=== PATIENT | female | born 1955 | race Caucasian/White ===

== ENCOUNTER 2021-01-25 19:31 | Emergency (ER) | payer OTHER ==
[2021-01-25 21:09] LABS: Absolute Lymphocytes (CBC) 1.3 K/uL (0.7-4.9); Basophils % 0.3 % (0-1.3); Hematocrit 44.7 % (36.0-45.0); Lymphocytes % 7.1 % (15.3-44.8); RBC Red Blood Cell Count 5.28 M/uL (3.86-4.86)
[2021-01-25] MEDS ORDERED: NA CHLORIDE 0.9% 500 ML ONE (21:11)
[2021-01-25] MEDS ORDERED: MEPERIDINE HCL 25 MG/ML SYR ONE (21:11)
[2021-01-25] MEDS ORDERED: ONDANSETRON 4 MG/2 ML VIAL ONE (21:11)
[2021-01-25 21:28] LABS: Albumin 3.7 g/dL (3.4-5.0); Bilirubin Direct 0.3 mg/dL (0-0.2); Bilirubin Total 0.9 mg/dL (0.2-1.0); Potassium 3.5 mmol/L (3.5-5.1); Protein, Total 7.7 g/dL (6.4-8.2)
[2021-01-25 21:42] LABS: Blood Morphology Comment NOT SEEN (NOT SEEN); Platelet Estimate ADEQ; White Blood Cell Scan OK (OK)
--- NOTE | 2021-01-25 22:52 | EDPHYS ---
Physician Documentation [facility] Name: Azul Clark Age: 65 yrs Sex: Female : 1955 Arrival Date: 01/25/2021 Time: 19:36 Bed 6 Private MD: ED Physician Koko Lovett HPI: 01/25 20:59 This 65 yrs old Female presents to ER via Unassigned with complaints of rn Abdominal Cramping. 20:59 The patient presents with abdominal pain in the left upper quadrant, in the left lower rn quadrant. Onset: The symptoms/episode began/occurred yesterday. The symptoms do not radiate. Associated signs and symptoms: Pertinent positives: diarrhea, fever, Pertinent negatives: blood in stools, hematuria. The symptoms are described as crampy. Modifying factors: The symptoms are alleviated by nothing, the symptoms are aggravated by touching the area. Severity of pain: At its worst the pain was moderate in the emergency department the pain has improved. The patient has not experienced similar symptoms in the past. The patient has been recently seen by a physician:. Saw Dr. Aragon on tele-visit, told had diverticulitis, given abx, now on day 2, still having crampy pain, + fever and diarrhea, no blood in stool. Reports also diagnosed in past with IBS.. Historical: - Allergies: 22:52 No Known Allergies; wh - PMHx: 22:52 Diabetes - NIDDM; Hypertension; wh - Immunization history:: Adult Immunizations unknown. - Social history:: Smoking status: Patient denies any tobacco usage or history of. - Family history:: not pertinent. - Hospitalizations: : No recent hospitalization is reported. ROS: 20:59 Constitutional: Negative for fever, chills, and weight loss, Eyes: Negative for injury, rn pain, redness, and discharge, Cardiovascular: Negative for chest pain, palpitations, and edema, Respiratory: Negative for shortness of breath, cough, wheezing, and pleuritic chest pain, Abdomen/GI: + left sided abd pain and diarrhea Back: Negative for injury and pain, MS/Extremity: Negative for injury and deformity, Skin: Negative for injury, rash, and discoloration, Neuro: Negative for headache, weakness, numbness, tingling, and seizure. Exam: 20:59 Constitutional: This is a well developed, well nourished patient who is awake, alert, rn and in no acute distress. Ambulatory to room without assistance. Head/Face: Normocephalic, atraumatic. Eyes: Periorbital areas with no swelling, redness, or edema. Cardiovascular: Regular rate and rhythm. No pulse deficits. Respiratory: No increased work of breathing, no retractions or nasal flaring. Abdomen/GI: soft, + left sided abd tenderness, no rebound Skin: Warm, dry MS/ Extremity: Pulses equal, no cyanosis. Neuro: Awake and alert, GCS 15 Vital Signs: 20:55 BP 126 / 70; Pulse 94; Resp 18; Pulse Ox 98% on R/A; mw2 21:00 BP 126 / 72; Pulse 95; Resp 17; Pulse Ox 96% on R/A; mw2 21:15 BP 112 / 66; Pulse 95; Resp 17; Pulse Ox 95% on R/A; mw2 21:30 BP 96 / 68; Pulse 93; Resp 18; Pulse Ox 96% on R/A; mw2 21:45 BP 112 / 68; Pulse 93; Resp 19; Pulse Ox 95% on R/A; mw2 22:30 BP 110 / 65; Pulse 91; Resp 18; Pulse Ox 99% on R/A; MDM: 20:24 Patient medically screened. rn 22:49 Differential diagnosis: bowel obstruction, diverticulitis, non-specific abd pain, rn Ureterolithiasis, urinary tract infection. Data reviewed: vital signs, nurses notes, lab test result(s), radiologic studies, CT scan, and as a result, I will discharge patient. Counseling: I had a detailed discussion with the patient and/or guardian regarding: the historical points, exam findings, and any diagnostic results supporting the discharge/admit diagnosis, lab results, radiology results, the need for outpatient follow up, to return to the emergency department if symptoms worsen or persist or if there are any questions or concerns that arise at home. Response to treatment: the patient's symptoms have markedly improved after treatment, and as a result, I will discharge patient. Special discussion: Based on the patient's Hx, exam, and Dx evaluation, there is no indication for emergent surgery or inpatient Tx. It is understood by the patient/guardian that if the Sx's persist or worsen they need to return immediately for re-evaluation. I discussed with the patient/guardian in detail that at this point there is no indication for admission to the hospital. It is understood, however, that if the symptoms persist or worsen the patient needs to return immediately for re-evaluation. Based on the history and exam findings, there is no indication for further emergent testing or inpatient evaluation. I discussed with the patient/guardian the need to see the aluminum pool installer for further evaluation of the symptoms. I discussed with the patient/guardian the need to see the primary care provider for further evaluation of the symptoms. ED course: Uncomplicated diverticulitis, will dc home with prn zofran and pain meds, already on abx, will continue. . 01/25 20:42 Order name: Basic Metabolic Panel; Complete Time: 21:31 rn 01/25 20:42 Order name: CBC with Diff rn 01/25 20:42 Order name: Hepatic Function; Complete Time: 21:31 rn 01/25 20:42 Order name: Lipase; Complete Time: 21:31 rn 01/25 20:42 Order name: CT Abd/Pelvis - IV Contrast Only 01/25 21:42 Order name: CBC Smear Scan EDGA 01/25 20:42 Order name: IV Saline Lock; Complete Time: 20:59 rn 01/25 20:42 Order name: Labs collected and sent; Complete Time: 20:59 rn Administered Medications: 20:54 Drug: NS 0.9% 500 ml Route: IV; Rate: bolus; Site: right antecubital; mg2 22:56 Follow up: Response: No adverse reaction; IV Status: Completed infusion 20:56 Drug: Demerol (meperidine) 25 mg {Note: RASS 0.} Route: IVP; Site: right antecubital; mg2 22:56 Follow up: Response: No adverse reaction; Pain is decreased; RASS: Alert and Calm (0) 20:58 Drug: Zofran (Ondansetron) 4 mg Route: IVP; Site: right antecubital; mg2 22:56 Follow up: Response: No adverse reaction Disposition: 01/25/21 22:51 Discharged to Home. Impression: Diverticulitis of large intestine without perforation or abscess without bleeding. - Condition is Stable. - Discharge Instructions: Diverticulitis. - Prescriptions for Zofran ODT 4 mg Oral tablet,disintegrating - place 1 tablet by TRANSLINGUAL route every 8 hours As needed; 20 tablet. Tylenol- Codeine #3 300-30 mg Oral Tablet - take 1 tablet by ORAL route every 4-6 hours As needed; 20 tablet. - Medication Reconciliation Form, Thank You Letter, Antibiotic Education, Prescription Opioid Use form. - Follow up: Private Physician; When: As needed; Reason: Recheck today's complaints, Re-evaluation by your physician. - Problem is new. - Symptoms have improved. Signatures: Dispatcher [employer] EDGA Koko Lovett MD MD rn Habalo, Winsy, RN RN Donny Stone RN RN mg2 Corrections: (The following items were deleted from the chart) 23:10 22:51 01/25/2021 22:51 Discharged to Home. Impression: Diverticulitis of large mg2 intestine without perforation or abscess without bleeding. Condition is Stable. Forms are Medication Reconciliation Form, Thank You Letter, Antibiotic Education, Prescription Opioid Use. Follow up: Private Physician; When: As needed; Reason: Recheck today's complaints, Re-evaluation by your physician. Problem is new. Symptoms have improved. rn
--- NOTE | 2021-01-25 22:52 | ER ---
Nurse's Notes [facility] Name: Azul Clark Age: 65 yrs Sex: Female : 1955 Arrival Date: 01/25/2021 Time: 19:36 Bed 6 Private MD: Diagnosis: Diverticulitis of large intestine without perforation or abscess without bleeding Presentation: 01/25 20:30 Chief complaint: Patient states: was diagnosed with Diverticulitis and started on antibiotics. Pt C/O worsening abdominal pain. Coronavirus screen: Client denies travel out of the [place] in the last 14 days. Client indicates they have traveled out of the [place] in the last 14 days. Ebola Screen: Patient negative for fever greater than or equal to 101.5 degrees Fahrenheit, and additional compatible Ebola Virus Disease symptoms Patient denies exposure to infectious person. Initial Sepsis Screen: Does the patient meet any 2 criteria? HR > 90 bpm. Does the patient have a suspected source of infection? Yes: Acute abdominal pain. Risk Assessment: Do you want to hurt yourself or someone else? Patient reports no desire to harm self or others. Onset of symptoms was January 25, 2021. 20:30 Method Of Arrival: Ambulatory 20:30 Acuity: VICKIE 3 Historical: - Allergies: 22:52 No Known Allergies; - PMHx: 22:52 Diabetes - NIDDM; Hypertension; - Immunization history:: Adult Immunizations unknown. - Social history:: Smoking status: Patient denies any tobacco usage or history of. - Family history:: not pertinent. - Hospitalizations: : No recent hospitalization is reported. Screenin:30 Abuse screen: Denies threats or abuse. Denies injuries from another. Nutritional screening: No deficits noted. Tuberculosis screening: No symptoms or risk factors identified. Fall Risk None identified. Assessment: 21:00 General: Appears in no apparent distress. uncomfortable, Behavior is calm, cooperative, wh appropriate for age. Pain: Complains of pain in abdomen Quality of pain is described as crampy, Pain began 1 day ago. Neuro: Level of Consciousness is awake, alert, obeys commands, Oriented to person, place, time, situation, Appropriate for age. Cardiovascular: Heart tones S1 S2. Respiratory: Airway is patent Respiratory effort is even, unlabored, Respiratory pattern is regular, symmetrical, Breath sounds are clear bilaterally. GI: Abdomen is flat, non-distended, Bowel sounds present X 4 quads. Abd is soft and non tender Reports lower abdominal pain. : No signs and/or symptoms were reported regarding the genitourinary system. EENT: No signs and/or symptoms were reported regarding the EENT system. Derm: Skin is intact, is healthy with good turgor, Skin is pink, warm \T\ dry. normal. Musculoskeletal: Circulation, motion, and sensation intact. 22:30 Reassessment: Patient appears in no apparent distress at this time. No changes from previously documented assessment. Patient and/or family updated on plan of care and expected duration. Pain level reassessed. Patient is alert, oriented x 3, equal unlabored respirations, skin warm/dry/pink. Patient states feeling better. Patient states symptoms have improved. Vital Signs: 20:55 BP 126 / 70; Pulse 94; Resp 18; Pulse Ox 98% on R/A; mw2 21:00 BP 126 / 72; Pulse 95; Resp 17; Pulse Ox 96% on R/A; mw2 21:15 BP 112 / 66; Pulse 95; Resp 17; Pulse Ox 95% on R/A; mw2 21:30 BP 96 / 68; Pulse 93; Resp 18; Pulse Ox 96% on R/A; mw2 21:45 BP 112 / 68; Pulse 93; Resp 19; Pulse Ox 95% on R/A; mw2 22:30 BP 110 / 65; Pulse 91; Resp 18; Pulse Ox 99% on R/A; ED Course: 01/24 20:30 Arm band placed on right wrist. 01/25 19:36 Patient arrived in ED. cl3 20:23 Koko Lovett MD is Attending Physician. rn 20:30 Patient has correct armband on for positive identification. Bed in low position. Call light in reach. Side rails up X 1. Pulse ox on. NIBP on. 20:45 Inserted saline lock: 20 gauge in right antecubital area, using aseptic technique. Blood collected. 22:09 CT Abd/Pelvis - IV Contrast Only In Process Unspecified. EDMS 22:49 Bri Cabral, F[place]ON is Primary Nurse. 22:50 Triage completed. 23:03 No provider procedures requiring assistance completed. IV discontinued, intact, mg2 bleeding controlled, No redness/swelling at site. Pressure dressing applied. Administered Medications: 20:54 Drug: NS 0.9% 500 ml Route: IV; Rate: bolus; Site: right antecubital; mg2 22:56 Follow up: Response: No adverse reaction; IV Status: Completed infusion 20:56 Drug: Demerol (meperidine) 25 mg {Note: RASS 0.} Route: IVP; Site: right antecubital; mg2 22:56 Follow up: Response: No adverse reaction; Pain is decreased; RASS: Alert and Calm (0) 20:58 Drug: Zofran (Ondansetron) 4 mg Route: IVP; Site: right antecubital; mg2 22:56 Follow up: Response: No adverse reaction Outcome: 22:51 Discharge ordered by MD. rn 23:03 Discharged to home ambulatory, with family. mg2 23:03 Condition: good 23:03 Discharge instructions given to patient, family, Instructed on discharge instructions, follow up and referral plans. medication usage, Demonstrated understanding of instructions, follow-up care, medications, Prescriptions given X 2. 23:10 Patient left the ED. mg2 Signatures: Dispatcher [employer] EDMS Koko Lovett MD MD rn Habalo, Winsy, RN RN Jf Cameron mw2 Donny Stone RN RN [facility] cl3 Corrections: (The following items were deleted from the chart) 22:55 20:30 Initial Sepsis Screen: Does the patient meet any 2 criteria? No. Patient's initial sepsis screen is negative. Does the patient have a suspected source of infection? Yes: Acute abdominal pain
[2021-01-25 23:23] VITALS: BP 110/65; O2SAT 99
--- NOTE | 2021-01-26 13:57 | RAD REPORT ---
EXAM DESCRIPTION: CT ABDOMEN AND PELVIS WITH CONTRAST CLINICAL HISTORY: Left sided abd pain COMPARISON: None Available. TECHNIQUE: CT of the abdomen and pelvis performed following IV administration of iodinated contras t. This exam was performed according to our departmental dose-optimization program, which includes au tomated exposure control, adjustment of the mA and/or kV according to patient size and/or use of iter ative reconstruction technique. FINDINGS: Lung Bases: Minimal bilateral dependent atelectasis. Bones: Multilevel endplate spondylosis and facet arthropathy of the spine. Abdomen: Liver: The liver has normal size and density. No intrahepatic biliary dilatation. 0.3 cm right hepati c cyst. Gallbladder: Punctate calcification at the inferior aspect of the gallbladder may represent cholelith iasis or gallbladder wall calcification. Spleen, Pancreas, and Adrenal Glands: 1.2 cm indeterminate left adrenal nodule. Right adrenal gland , spleen, and pancreas are unremarkable. Kidneys: No hydronephrosis or obstructing calculus. Vasculature: Aortoiliac atherosclerosis. IVC is unremarkable. The portal vein is patent. The proxim al visceral and renal arteries are patent. Stomach: Moderate hiatal hernia. Other: No free intraperitoneal air. Small amount of free pelvic fluid. Pelvis: Bladder: Urinary bladder is unremarkable. Bowel: No dilated loops of large or small bowel. Scattered diverticula colon. Short segment bowel w all thickening and pericolic inflammatory change of the proximal sigmoid colon. No well-circumscribed pericolic fluid collection. Mild wall thickening of the adjacent small bowel likely represents react mirza enteritis. Appendix: Not identified. Pelvis: Coarse calcifications involving the uterine myometrium may represent burned out fibroids. The uterus is not enlarged. IMPRESSION: 1. Findings compatible with acute uncomplicated sigmoid diverticulitis. Continued foll ow-up after acute illness to exclude other causes of short segment bowel wall thickening recommended. 2. 1.2 cm indeterminate left adrenal nodule. Follow-up with adrenal washout CT recommended in 12 mo nths. 3. Moderate hiatal hernia. 4. Punctate calcification at the inferior aspect of the gallbladder may represent cholelithiasis or gallbladder wall calcification. Electronically signed by: Naveen Spencer 01/25/2021 10:35 PM CDT Due to temporary technical issues with the PACS/Fluency reporting system, reports are being signed by the in house radiologists without review as a courtesy to insure prompt reporting. The interpreting radiologist is fully responsible for the content of the report.
== END 2021-01-25 23:10 | disposition home or self-care (01) ==
LOC: ER 19:31
DX: K57.32 Diverticulitis of large intestine without perforation or abscess without bleeding (principal); I10 Essential (primary) hypertension; E11.9 Type 2 diabetes mellitus without complications
CPT/HCPCS: 85025; 80048; 36415; 80076; 83690; 74177; Q9967; J2175; J7040; J2405; 96361; 96374; 96375; 99284

== ENCOUNTER 2022-04-02 06:30 | Day surgery (SDC) | payer OTHER ==
--- NOTE | 2022-03-29 15:19 | RAD REPORT ---
EXAM DESCRIPTION: RAD - Chest Pa And Lat (2 Views) - 03/29/2022 3:02 pm CLINICAL HISTORY: pre-circus laborer procedure COMPARISON: No comparisons FINDINGS: Lines: None. Lungs: No evidence of edema or pneumonia. Pleural: No significant pleural effusions or pneumothorax. Cardiac: The heart size is within normal limits. Bones: No acute fractures. Other: IMPRESSION: No acute cardiopulmonary disease.
[2022-03-29 16:14] LABS: Hematocrit 41.2 % (36.0-45.0); Lymphocytes % 22.5 % (15.3-44.8); MPV 8.4 fL (7.6-11.3); Protime INR 0.98; RBC Red Blood Cell Count 4.53 M/uL (3.86-4.86)
[2022-03-29 16:31] LABS: Potassium 3.5 mmol/L (3.5-5.1)
--- NOTE | 2022-03-31 08:58 | EKG ---
Test Date: 2022-03-29 Test Time: 15:12:27 Plumbing And Heating Contractor: ANNA MEASUREMENT RESULTS: Intervals: Rate: 73 MN: 146 QRSD: 80 QT: 394 QTc: 434 Epworth: P: 36 MN: 146 QRS: -14 T: 15 INTERPRETIVE STATEMENTS: Normal sinus rhythm Possible Left atrial enlargement Low voltage QRS Inferior infarct, age undetermined Cannot rule out Anterior infarct, age undetermined Abnormal ECG No previous ECG available for comparison Electronically Signed On 03-31-22 08:55:32 CDT by Antonio lBack
[2022-04-02] MEDS ORDERED: LIDOCAINE 1% 20 ML MDV ONE (06:36)
[2022-04-02] MEDS ORDERED: HEPA 1000U/500MLS 1,000 UNIT/500 ML BAG IV ONE (06:36)
[2022-04-02] MEDS ORDERED: MIDAZOLAM HCL 2 MG/2 ML INJ ONE (07:00)
[2022-04-02] MEDS ORDERED: ATROPINE SULF 1 MG/10 ML SYR IV ONE (07:00)
[2022-04-02] MEDS ORDERED: FENTANYL CITR 100 MCG/2 ML ONE (07:00)
[2022-04-02] MEDS ORDERED: NA CHLORIDE 0.9% 500 ML ONE (07:05)
[2022-04-02 07:18] VITALS: TEMP 97
[2022-04-02 09:53] VITALS: BP 148/69; O2SAT 97
--- NOTE | 2022-04-02 13:04 | OP ---
Surgeon: Antonio Black MD Eyelet Row Marker: Myrna Liveshweta Corral. Admitted to my service on 04/02/2022 as an outpatient for selective bilateral carotid angiogram and a common femoral artery angiogram. Indication: Severe cerebrovascular disease by Doppler recently in the office. Ms. Clark is 66. Has a history of diabetes, hypertension, dyslipidemia, abnormal carotid Doppler on the left side. Procedure In Detail: Brought to the laborer vineyard today as an outpatient, prepped and draped in the routi ne sterile fashion. Given Versed and fentanyl for sedation. A 6-Frisian sheath introduced in the rig common femoral artery successfully using 10 cc of Xylocaine and Seldinger technique. Angiography there was normal. Angio-Seal was used to close the case. A JR4 catheter was used to cannulate the r ight common carotid artery first and then the left common carotid artery separately. Angiography on both carotids revealed normal common carotid artery bilaterally. The external carotid artery has inna e plaquing throughout. The right internal carotid artery was normal. The left internal carotid had a 90% stenosis in the proximal segment of it. There were no complications. Blood loss was 5 mL. Postoperative Diagnosis: Severe left ICA stenosis. Plan: For left carotid endarterectomy. The patient will remain in the hospital for 2 hours of bedre . I will have her follow up with CV Surgery in [place]. She will have a CD with her. GLYNN/JAZZ Voice ID: [id number] Report ID: [id number]
== END 2022-04-02 10:05 | disposition home or self-care (01) ==
LOC: CCL 06:30
DX: I65.22 Occlusion and stenosis of left carotid artery (principal); I10 Essential (primary) hypertension; E78.2 Mixed hyperlipidemia; E11.9 Type 2 diabetes mellitus without complications; R09.89 Other specified symptoms and signs involving the circulatory and respiratory systems; F17.210 Nicotine dependence, cigarettes, uncomplicated; Z79.84 Long term (current) use of oral hypoglycemic drugs; Z79.899 Other long term (current) drug therapy; Z20.822 Contact with and (suspected) exposure to COVID-19; Z82.49 Family history of ischemic heart disease and other diseases of the circulatory system
CPT/HCPCS: 93005; 85025; 80048; 36415; 85610; 85730; 71046; 36222; U0003; C1893; C1760; G0269; J2250; J3010; J7040; J1644

== ENCOUNTER 2022-12-22 11:30 | Emergency (ER) | payer OTHER ==
--- OUTSIDE RECORDS SUMMARY | 2022-12-22 11:34 | XMS REPORT | Continuity of Care Document ---
:1955 Author Organization [facility] t Address [address] [place] [address] Care Team Providers Name Role Phone Adair ZUNIGA, Bart Myers Attending Clinician [phone] BART BORRERO Attending Clinician Unavailable Oli LEHMAN, Susana Attending Clinician Yash ZUNIGA, Brandin Oconnor Attending Clinician Edwige ZUNIGA, Devyn Sheets Attending Clinician BART BORRERO Admitting Clinician Unavailable Payers Payer Name Policy Type Policy Number Effective Date Expiration Date S ource Problems Condition Condition Condition Status Onset Resolution Last Treating Co mments Source Name Details Category Date Date Treatment Clinician Date Carotid Carotid Disease Active [facility] stenosis[facility] stenosis, 04-10 [facility] left left 00:00: Medical 00 Center Carotid Carotid Disease Active [facility] stenosis, stenosis, 04-10 [facility] asymptomat asymptomat 00:00: Me dical ic ic 00 Center Left Left Disease Active [facility] carotid carotid 04-04 [facility] artery artery 00:00: Medical stenosis stenosis 00 Center Type 2 Type [address] [facility] diabetes diabetes 04-04 [facility] mellitus mellitus 00:00: Medica l 00 [place] Essential Essential Disease Active [facility] hypertensi hypertensi 04-04 [facility] kes on on 00:00: Medical 00 [place] Hyperlipid Hyperlipid Disease Active [facility] emia emia 04-04 [facility] 00:[facility]: Medical 00 Center S/P Left S/P Left Disease Active [facility] carotid carotid [facility] endarterec endarterec Me dical car by car by Center Dr. Dr. Borrero on [facility] on 04/10/22 04/10/22 Acute Acute Disease Active [facility] postoperat postoperat [facility] kes mirza anemia mirza anemia Me dical due to due to Center expected expected blood loss blood loss Acute Acute Disease Active [facility] postoperat postoperat [facility] kes mirza pain mirza pain Medica l Center Hypovolemi Hypovolemi Disease Active [facility] c shock c shock [facility] Allergies, Adverse Reactions, Alerts Allergy Allergy Status Severity Reaction(s) Onset Inactive Treating Comm ents Source Name Type Date Date Clinician AMOXICIL Allergy Active Med N\\T\\V [facility] KAT[facility] -22 [facility] 00:[facility]: Medical 00 Center AMOXICIL Allergy Active Med N\\T\\V [facility] KATI-POT 04-04 [facility] CLAVULAN 00:00: Medical ATE 00 Center Amoxicil Propensi Active Nausea And [facility] kati ty to Vomiting 04-04 [facility] adverse 00:00: Medical reaction 00 [place] Amoxicil Propensi Active Nausea And [facility] kati-Pot ty to Vomiting 04-04 [facility] Clavulan adverse 00:00: Medical ate reaction 00 [place] Family History Family Member Diagnosis Comments Start Date Stop Date Source Natural brother Hypertension [facility] Natural father Hypertension [facility] Social History Social Habit Start Date Stop Date Quantity Comments Source Alcohol intake 2022-04-11 2022-04-[facility] Tobacco Comment 2022-04-09 2022-04-09 5 - [address] [facility] Farzana kes 00:00:00 00:00:00 cigarettes/day Medical Ce nter Cigarettes smoked 2022-04-04 2022-04-[address] Farzanakes current (pack per 00:00:00 00:00:00 [facility] day) - Reported Cigarette 2022-04-04 2022-04-[address] [facility] pack-years 00:00:00 00:00:[address] [facility] Tobacco use and 2022-04-04 2022-04-04 Never used [facility] St Farzana kes exposure 00:00:00 00:00:[address] [facility] Sex Ass[birth year] At 1955 [address] [facility] [address] Farzana kes 00:00:00 00:00:00 Medical Center Smoking Status Start Date Stop Date Source Current every day smoker 2022-04-04 00:00:00 [facility] Medications Ordered Filled Start Stop Current Ordering Indication Dosage Frequency Signature Comments Components Source Medication Medication Date Date Medication? Clinician (SIG) Name Name aspirin 81 Yes 81mg QD Take [address] MG EC 7-12 by mouth [facility] tablet 09:23: daily. Medical 34 [place] sertraline Yes 50mg QD Take [address] (ZOLOFT) 50 6-19 by mouth Luke s MG tablet 00:00: daily . Medic al 00 [place] clopidogreL Yes 75mg QD Take [address] (PLAVIX) 75 6-16 by mouth Luke s mg tablet 00:00: daily . Medic al 00 [place] metFORMIN Yes 750mg Take [address] (GLUCOPHAGE 6-08 mg by [facility]ukes -XR) 750 MG 00:00: mouth Medic al 24 hr 00 daily with Center tablet dinner WITH MEAL. clonazePAM Yes .5mg Take 0.[address] (KlonoPIN) 6-07 mg by [facility]ukes 0.5 MG 00:00: mouth as Medical tablet 00 needed . [place] atorvastati Yes 20mg QD Take [address] n (LIPITOR) 6-06 by mouth Luke s 20 MG 00:00: daily. Medical tablet 00 Center metoprolol Yes 25mg QD Take [address] succinate 4-06 by mouth [facility] (TOPROL-XL) 00:00: daily. Medi james 25 MG 24 hr 00 Center tablet traZODone Yes 100mg QD Take [address] (DESYREL) 3-28 mg by [facility]ukes 100 MG 00:00: mouth Medical tablet 00 daily . Center Vital Signs Vital Name Observation Time Observation Value Comments Source HEIGHT 2022-04-24 09:07:00 170.2 cm WEIGHT 2022-04-24 09:07:00 78.472 kg HEIGHT 2022-04-24 09:07:00 170.2 cm WEIGHT 2022-04-24 09:07:00 78.472 kg WEIGHT 2022-04-11 04:00:00 80.1 kg HEIGHT 2022-04-10 09:14:00 170.2 cm WEIGHT 2022-04-10 09:14:00 74.6 kg HEIGHT 2022-04-09 10:03:00 170.2 cm WEIGHT 2022-04-09 10:03:00 74.844 kg WEIGHT 2022-04-11 04:00:00 80.1 kg HEIGHT 2022-04-10 09:14:00 170.2 cm WEIGHT 2022-04-10 09:14:00 74.6 kg HEIGHT 2022-04-09 10:03:00 170.2 cm WEIGHT 2022-04-09 10:03:00 74.844 kg WEIGHT 2022-04-11 04:00:00 80.1 kg HEIGHT 2022-04-10 09:14:00 170.2 cm WEIGHT 2022-04-10 09:14:00 74.6 kg HEIGHT 2022-04-09 10:03:00 170.2 cm WEIGHT 2022-04-09 10:03:00 74.844 kg HEIGHT 2022-04-04 09:57:00 170.2 cm WEIGHT 2022-04-04 09:57:00 75.751 kg HEIGHT 2022-04-04 09:57:00 170.2 cm WEIGHT 2022-04-04 09:57:00 75.751 kg HEIGHT 2022-04-04 09:57:00 170.2 cm WEIGHT 2022-04-04 09:57:00 75.751 kg Body temperature 2022-04-24 09:07:00 35.89 Mickie [facility] Respiratory rate 2022-04-24 09:07:00 14 /min [facility] Body height 2022-04-24 09:07:00 170.2 cm [facility] Body weight 2022-04-24 09:07:00 78.472 kg [facility] BMI 2022-04-24 09:07:00 27.10 kg/m2 [facility] Oxygen saturation in 2022-04-24 09:07:00 99 /min [facility] Arterial blood by Medical Ce nter Pulse oximetry Systolic blood 2022-04-24 09:07:00 131 mm[Hg] [facility] Diastolic blood 2022-04-24 09:07:00 63 mm[Hg] [facility] Heart rate 2022-04-24 09:07:00 74 /min [facility] Procedures Procedure Date / Time Performed Performing Clinician Sour e POCT-GLUCOSE METER 2022-04-11 08:05:[address] [facility] COMPREHENSIVE METABOLIC 2022-04-11 02:34:00 Bubba, [facility] MAGNESIUM 2022-04-11 02:34:00 Bubba, [facility] PHOSPHORUS 2022-04-11 02:34[facility] 2022-04-11 02:34:00 Bubba, [facility] BLOOD GAS, ARTERIAL 2022-04-11 02:34:00 Bubba, [facility] CBC W/PLT COUNT & AUTO 2022-04-11 02:34:00 Bubba, [facility] LACTIC ACID, ARTERIAL 2022-04-11 02:34:00 Bubba, [facility] CBC W/PLT COUNT & AUTO 2022-04-11 02:34:00 Bubba, [facility] METABOLIC 2022-04-10 21:10:00 Bubba, [facility] MAGNESIUM 2022-04-10 21:10:00 Bubba, [facility] PHOSPHORUS 2022-04-10 21:10:00 [facility] CALCIUM, IONIZED 2022-04-10 21:10:00 [facility] BLOOD GAS, ARTERIAL 2022-04-10 21:10:00 [facility] PROTHROMBIN TIME/INR 2022-04-10 21:10:00 [facility] APTT 2022-04-10 21:10:00 [facility] FIBRINOGEN 2022-04-10 21:10:00 Bubba [facility] LACTIC ACID, ARTERIAL 2022-04-10 21:10:00 Bubba [facility] CBC W/PLT COUNT & AUTO 2022-04-10 21:10:00 Bubba [facility] CBC W/PLT COUNT & AUTO 2022-04-10 21:10:00 Bubba [facility] DIFFERENTIAL [facility] ECG 12-LEAD 2022-04-10 20:15:27 Bubba [facility] ECG 12-LEAD 2022-04-10 20:15:27 Unknown, Hl7 Doctor [facility] XR CHEST 1 VIEW PORTABLE 2022-04-10 19:56:00 Bubba [facility] SODIUM NA-STAT LAB 2022-04-10 14:07:00 [facility] POTASSIUM-STAT LAB 2022-04-10 14:07:00 [facility] CALCIUM, IONIZED 2022-04-10 14:07:00 [facility] GLUCOSE-STAT LAB 2022-04-10 14:07:00 [facility] HGB/HCT (H&H) - STAT LAB 2022-04-10 14:07:00 [facility] TISSUE EXAM 2022-04-10 12:59:00 [facility] POCT-ACT 2022-04-10 12:58:00 [facility] ABORH, MANUAL 2022-04-10 12:06:00 Gladis Colon [facility] ENDARTERECTOMY, CAROTID 2022-04-10 11:46:00 [facility] POCT-GLUCOSE METER 2022-04-10 09:18:00 [facility] BASIC METABOLIC PANEL 2022-04-04 12:26:00 Sean Epperson CH I [facility] CBC W/PLT COUNT & AUTO 2022-04-04 12:26:[address] [facility] Center PROTHROMBIN TIME/INR 2022-04-04 12:26:00 Sean Epperson [facility] TYPE AND SCREEN, 2022-04-04 12:26:00 Sean Epperson [facility] AUTOMATED [facility] CBC W/PLT COUNT & AUTO 2022-04-04 12:26:00 Sean Epperson HI [facility] ECG 12-LEAD 2022-04-04 11:45:11 Sean Epperson [facility] ECG 12-LEAD 2022-04-04 11:45:11 Unknown, Hl7 Doctor [facility] Plan of Care Planned Activity Planned Date Details Comments Source Future Scheduled 2022-10-[address] [facility] Test 00:00:00 (12+) [code = Medical Center DEPRESSION SCREENING (12+)] Future Scheduled 2022-10-14 FALLS RISK SCREENING [facility] Test 00:00:00 [code = FALLS RISK Medical C enter SCREENING] Future Scheduled 2022-06-14 INFLUENZA VACCINE (#1) [facility] Test 00:00:00 [code = INFLUENZA Medical Ce nter VACCINE (#1)] Future Scheduled 2022-04-[address] [facility] Test 00:00:00 measurement (procedure) [facility] [code = 07264261] Future Scheduled 2020-10-[address] [facility] Test 00:00:00 WELLNESS (YEAR 2 or Medical Center FIRST YEAR if no IPPE) [code = MEDICARE ANNUAL WELLNESS (YEAR 2 or FIRST YEAR if no IPPE)] Future Scheduled 2004 SHINGLES VACCINES ([address] [facility] Test 00:00:00 2) [code = SHINGLES Medical Center VACCINES (1 of 2)] Future Scheduled 1973 DTAP/TDAP/TD VACCINES [facility] Test 00:00:00 (1 - Tdap) [code = Medical C enter DTAP/TDAP/TD VACCINES (1 - Tdap)] Future Scheduled 1972 HEPATITIS C SCREENING [facility] Test 00:00:00 [code = HEPATITIS C Medical Center SCREENING] Future Scheduled [address] [facility] Test 00:00:00 Counseling and Medical Cente r Screening (12+) [code = Tobacco Cessation Counseling and Screening (12+)] Future Scheduled 1964 DIABETIC EYE EXAM [code [facility] Test 00:00:00 = DIABETIC EYE EXAM] [facility] Future Scheduled [address] [facility] Test 00:00:00 examination Medical Center (regime/therapy) [code = 326623489] Future Scheduled 1964 Urine screening for [facility] Test 00:00:00 protein (procedure) [facility] [code = 566278089] Future Scheduled 1960 PNEUMOCOCCAL 65+ YRS ([address] [facility] Test 00:00:00 - PCV) [code = Medical Cente r PNEUMOCOCCAL 65+ YRS (1 - PCV)] Future Scheduled 1955-02-10 COVID-19 VACCINE (#1) [facility] Test 00:00:00 [code = COVID-[address] VACCINE (#1)] Future Scheduled 1954 Screening for malignant [facility] Test 00:00:00 neoplasm of breast Medical C enter (procedure) [code = 748035801] Future Scheduled 1954 CT Colonography (combo) [facility] Test 00:00:00 [code = CT Colonography [facility] (combo)] Future Scheduled 1954 Screening for malignant [facility] Test 00:00:00 neoplasm of colon Medical Ce nter (procedure) [code = 429871556] Future Scheduled 1954 Screening for malignant [facility] Test 00:00:00 neoplasm of colon Medical Ce nter (procedure) [code = 777639494] Future Scheduled 1955 DXA SCAN [code = DXA [facility] Test 00:00:00 SCAN] [facility] Future Scheduled 1954 Screening for malignant [facility] Test 00:00:00 neoplasm of colon Medical Ce nter (procedure) [code = 141201147] Future Scheduled 1954 Screening for malignant [facility] Test 00:00:00 neoplasm of colon Medical Ce nter (procedure) [code = 021902992] Future Scheduled 1955 Sigmoidoscopy [code = CH I [facility] Test 00:00:00 Sigmoidoscopy] Medical Renea bae Encounters Start End Encounter Admission Attending Care Care Encounter Source Date/Time Date/Time Type Type Clinicians Facility Department ID 2022-04-24 2022-04-24 Office Adair [facility] [id number] 10:00:00 10:30:00 Visit [facility] 2022-04-24 2022-04-24 Outpatient MARKUS BORRERO [facility] [id number] [facility] 09:01:21 09:01:21 [facility] 2022-04-16 2022-04-16 Telephone Oli [facility] [id number] 00:00:00 00:00:00 [facility] 2022-04-10 2022-04-11 Inpatient MARKUS BORRERO [facility] Surgery [id number] [facility] 08:58:00 11:04:00 [facility] 2022-04-10 [facility]22[facility]04[facility] [id number] 08:58:00 11:04:00 Encounter [facility] 2022-04-10 2022-04-10 Outpatient [facility] [id number] [facility] 08:58:00 23:59:00 [facility] 2022-04-10 2022-04-10 Anesthesia Brandin Berrios [facility] [id number] 12:02:00 14:08:00 Event Devyn Gibbons [facility] 2022-04-10 2022-04-10 [facility] [id number] 11:15:00 14:07:00 [facility] 2022-04-10 2022-04-10 Outpatient [facility] [id number] [facility] 00:00:00 08:57:00 [facility] 2022-04-09 2022-04-09 Outpatient [facility] [id number] [facility] 10:01:21 23:59:00 2022-04-09 2022-04-09 [facility] [id number] 09:40:00 23:59:[address] [facility] 2022-04-09 2022-04-09 Travel [facility] [id number] [facility] 00:00:00 00:00:00 [facility] 2022-04-04 2022-04-04 Office Adair [facility] [id number] 11:00:00 11:30:00 Visit [facility] 2022-04-04 2022-04-04 Outpatient EL ADAIR [facility] [id number] [facility] 09:52:55 09:52:55 [facility] 2022-04-04 2022-04-04 Orders [facility] [id number] 00:00:00 00:00:00 Only [facility] Results Test Description Test Time Test Comments Results Result Comments Source Tissue Exam 2022-04-21 14:23:23 Test Item Value Reference Range Interpretation Comme nts Case Report (test code = 104) Surgical Pathology Report Case: [id number] Authorizing Provider: Bart Borrero, Collected: 04/10/2022 12:59 PM Ordering Location: [facility] Received: 04/10/2022 02:29 PM PERIOPERATIVE SERVICES Pathologist: Mari Ibarra MD Specimen: Plaque, Left Carotid Artery Plaque DIAGNOSIS (test code = 3220) c0runJGcOUAxt2ziZBWksEMbFwPhOzOxHbGeDa dWMxIHtccnRmMVxlcGljOTYwMlxhbnNpXHNwbHRw V0ZwfzatIWucUB5oBG8ciSrlxEKzuPApQJZsWvGw f7nod688aGUqo6rlWERAaxrehCp7iQusV48uz4A2 EmxvS38naHVjEWD4NIXgCORlzUZdMUGoDAC8KLPt tZMoO7kdLMHbJY7eklvmTCpyLUruUGZtvGM2OYHe aCXuZ3ZfATJiUYzpYRVprzy9EyAkRs5wlDCukAad MFxwYXJkXHBsYWluXGZzMjAgTEVGVCBDQVJPVElE PXRQQMKSWWVGSXSNHOEcBXTNUEFVVLXQMVTVA47J WcxahU0kGUMiBESGXHBEEheATIRSPFvPRh3DPSVX VAVmCMyEKDFFRERbik40TLH7RiSzf2Z1HHW4YFEt NXKvn8arIWLnoPVsWkUjUjEjYrZhYtankHWlKTBr LeKpp8aji776yQGrc5utQJDwFlA3dSRaRKGiyMUd B997TUYfKOzbz3ldl3EyCLWsiHWta3B9LUAZaiyk oIk1hCzkM70ja3H1IzweO7mmHROoPNOnW0YqHK5g MWSwEqh2PBT6VAF5KVTkYMGiP7HbOJ7tZOBmuEYk BCg0p3rpqIhkHQKdIXY3f6noYHqqtzDhXO4chn7s bEd9f5kswzXrSADeBPXmrJXRRCHfJ0LizFjjVu8f tMt9gMyxSxtoQUK0Apn6SE1fdw08flb0jDczNQUo uzvoNfN7UUbfFAYfagjlQFk8AJqxDJYdlOU3DISd qOOiX6TjTTDzRI5etgj2BTA7BAuuTKBaSyW9RJUr rVUoIYDpqJzlTXgof931JLA3KcDcQZ6xO1Jfw9D1 gB3jrQAfKKMybSBxReVzHPQdii1sgHQdDCnnb4Hy VFX6jjZ4oJLjgODbEKZfGeV5EPuvVR5ykr81WERu ICG9zo1cdCRdjVfxdxNkzJPbPEgpP7MeUOWjo009 WFUwB6EdWYYzc4A8cvTgVxThODWeiMZ5plM6TSWj EI1mfycsa6rvQNpdSWfmKYMljmY2ilK8CRVqbNOc F2YgsG9cPSFaPN1jcubfv1wmNGH2RPkxVJKxKZM7 IfTbUOPkd3Vebqv5ZnWiu3DxbQLjAZzzC75ji160 QFJlehKpN5mzpMWijyqttKZvzayeSCylwcT3VVEd XAqxxzzoOROmVYvzQ9tfSdOgINAbuSjhTPxky2Xp OEOhEFXpAnGtiUWtZNAcZin1DWXlwQQnSPWjRnUf C8clfbcbUzBAJFOmw3ioE4pqlIPSiWFdG5ToSJkt ksQaVDxtKIxvRjIwBTr6PN01PfJmTCCdvo14 CPT Code(s) (test code = 0517) e4nebFGdMWEvmUB8UoAwJXBpr3ozr0CyhWTu cGFy ZBsnwJQoswCwki01bVI1mF59CJ0qXZZwCnD0BXGy nzH6Ewc7QXNiPRUkkRTeL187w1hvo3jcodFugRR5 gIypOXSztemnJmS9FDupVQUalftgZMx8AZdfOTJh nZI7NWRdkTApH0PtVJLxDB6xhda2RVJ8FZenNJSn TaQ6BPDouQNuXRCogUcmLKxap966AUX0UgFbFSXb qwBtlSctrX4bXgVpSWW8UVLzFUjaSTwsGFAglGKg fQ== CLINICAL HISTORY (test code = 3747) l0pelXBoWREsjKB7YuIqKHPsk1hpt7H sdHBncGFy HZvkxNHxbtGgqv62bHS5eK53LH6sWEFzYfG4LLOp ovU2Lbs1MKVfDFDcuPWjV942z1dpj0ochxVtnIB3 cOteIOTeeuenFpS9GRswBNPtliacOSw6LQnjROGt gHK4HQQmlXGtE3KsRQRaUV7hbxy3QXN2CMylUAUj OvM7EWFgwVSaPHCwqNhjZOrsz050PZD6IaSuXPId wyHzdPycsQ0dZbYuWNLUhOJln5EacpDwWqSqEMI3 XYVxer11jACmLJJ4SIL1NGltNYG8 SPECIMEN SOURCE (test code = 3377) l9kwsQRsJEOlmQZ4LkJyIEDpk2zob9Oi dHBncGFy JLpmeBGdscOrse67xIN0vD49PD6lRVVdLbY8OAEy omG1Nin8TILkJGLyuSKsN048r6iua3uswxKlmRL7 tOkoBTMkiznqLlE2HXnxDOOhlmmwWCq9JJpgIHKw jFY3VNRjgNVvS0RoQEQfTM0ytgh2RZD4IZknGKDa IqD8FFRcvBPoILRmtCpfBCgwd413PUZ1ZfCjEXIf yxRiaEpymN1bGjExCQVFmITzpPAsGJncZtWyW2Kb i9NnUCWdwfKvszrswFEwzU== GROSS DESCRIPTION (test code = q8ezuHOnMOSblMVIWALaW1ehbgAeTAJaiPUi [facility] [id number]) pfdiLMwcYY2gWV7hvEeatYHnmSYfLG2KOAAcIdTu MDHnhTUamhOyQzThYVKrnZBmsCS7JMOuYF1ueteq UPliIVutAIDxnuU0WZGbnBTeM1MgHBXhLV6jfgra JMN2HJmuuJ1kekEVEedeUw2ozAEnbDgbDnEjPeSg WXYmPBVmKBQsoZmsUYUhRNi0bI9UDigqA68vd3Q5 Zju8OSArKNXkB2SnMV4cFGCiuHPhQ27TFjvnXFS7 IAMBPlgsLWRrYT9Xx7afGDDmwPJoNYM4ROtmuJBe ZYXoYJFbWAm5KUOeXAurqDJkRR2vwUtgPvezkMdg l5WmnIAuHUazJMTyLFGjHMbhSYRbCR2RRzYuOAOj IBYqJTNhYWh5AEe0VW3IDoDwNJEwQXF4XHJ2LZXh CRp7GVyaWK0YXJN4XUk8GxOeQJV6OLP2LmSzUBRh RnEuZPHpTJGeJLbkPByquOPrLD9meQzevEIxueGC LiBQbGFxdWUuXHBhciANClxlcGljTmVzdERvYzEg DQpcbHRycGFyXGxpbjBccmluMCANClxsdHJjaFxj ZjFcZnMyMCBSZWNlaXZlZCBmcmVzaCBsYWJlbGVk PFjiyFfduEaaUQYbbMuhveLfY3S2xxJoNT1dENJT Hj0pQG6cPTBmaMRdwUUwHIieDTOqjKZgtvhzsENb bEWrquBqp8LdJKN1YdQaIVFxlC0hoUjlwsQyDjM2 XZbhu3tfgtIkFHDnKVH3GDIpCLMpcAYbyeetCr76 LBfzPJ72NQevLI44LZVyLIBwNmr+IFRoZSBzcGVj vQ6udbUkxsBvJAXhAYeakRKeFAJ6hN5vWDNkeR1l qnV8NXAvXTMsdEKvCsmgABAvd62yBC6zTMW1imqt UfI3wWU7hwOoOlLhT29ycK2uhVmcO8unLTFrLox+ AVNdADRiySEmbN9ofrAwziRhpAShfCA1ICVrYC16 zPFefSjrzW2eYXCiHGXmzJawf9bmOgRcFIYodFOd PctpEXXou52pRJcegrKgEDaorvFeHwHwJDKWBDOi mstuQYaAEKVgaaAFVkgcTPQgRRqyK1EbXPQdFqCo OHvvlAyiwW1vCKLgW03vj6QNy7OkTRArALwev3lv vKmtf3QzkAHdRQhtPJRrmOSeLXtnnD5aUpNqo0uv gWp8AKsxlvC3UMWnrl4OStkpmL7nHsXzd5biiGi2 ODDETunzdfP5c7fvpCmqd3PfuRRjAZ9HNg6= MICROSCOPIC DESCRIPTION (test code = h1dqbNXeALCblWV8LxDzRBDta7uyc7 BsdHBncGFy 3371) WPayiHEcpnFnug99aHV3jF60RC1zNDWdJzC5RHEk qtA1Ols8PEWnFHKheUMcD982u2stc8uwnaJnnIR6 hJjtVJHggiqbTsA4AXdhPHBybpfaXYl7VCdyVMIh cVR9QMUnmBVsE3QeOJIoRW3rcff4FWN5FDwlBNCo YxI8DRNchXQiAIVwnJleZWirf971ZTS6TiApHTIf tfTnpVrpdD4qWhNxDBEJKCAoq4TdHUUfxXKkmR== Gross assessment was performed at (test [facility] enter, code = 2777) Department of Pathology, [address] [place] [id number], Technical component was performed at [facility] er, (test code = 2778) Department of Pathology, [address] [place] [address], Professional component was performed at [facility] enter, (test code = 2779) Department of Pathology, [address] [place] [address], [facility] [id number] 14:23:23Surgical Pathology Report Case: [id number] Authorizing Provider: Bart Borrero, Collected: 04/10/2022 12:59 PM Ordering Location: [facility] Received: 04/10/2022 02:29 PM PERIOPERATIVE SERVICES Pathologist: Mari Ibarra MD Specimen: Plaque, Left Carotid Artery Plaque LEFT CAROTID ARTERY PLAQUE, ENDARTERECTOMY: - CALCIFIED ATHEROMATOUS PLAQUE Signing Pathologist Direct Phone Line: [phone] signed by Mari Ibarra MD on 04/21/2022 at 2:23 [id number], [id number] of left carotid artery Plaque, left carotid arteryA. Plaque.Received fresh labeled with the patient's name, MRN and "plaque" is a previously incised tubular portion of yellow-red plaque measuring 2.5 x 0.5 x 0.5 cm cm. The specimen is serially sectioned to reveal calcifications measuring up to 0.2 cm in thickness. The specimen is submitted entirely in A1, following decalcification.[facility], Department of Pathology, [address] [place] [address], [facility], [facility], [address] [place] [address], [facility], Department of Pathology, [address] [place] [address], ESF-Glucose [id number] 08:18:19 Test Item Value Reference Range Interpretation Comments POC-Glucose Meter (test 137 mg/dL 70-110 H : TE STED AT [facility] code = 1538) [address] [place] [address], [facility] 30: [employer] Courtesy Clerk/Techni trini ID = [id number] for Kaitlynn Dixon Lab Interpretation (test Abnormal code = 82775-0) [facility] [id number] 08:18:19 Test Item Value Reference Range Interpretation Comments POC-GLUCOSE METER 137 mg/dL 70-110 H : TESTED [place] [address] (BEAKER) (test code = [place], 1538) [address]: [employer] Courtesy Clerk/Techni trini ID = [id number] for Kaitlynn Dixon Blood gas, [id number] 03:56:18 Test Item Value Reference Range Interpretation Comments pH, Arterial (test code 7.35 7.35-7.45 = 2744-1) pCO2, Arterial (test 40 See_Comment [Autom ated code = 2018-8) message] The system which generated this result transmitted reference range : 35 - 45 mm Hg. The reference range was not used to interpret this result as normal/abnormal . pO2, Arterial (test 138 See_Comment H [Automa sarah code = 2703-7) message] The system which generated this result transmitted reference range : 80 - 90 mm Hg. The reference range was not used to interpret this result as normal/abnormal . O2 Sat, Arterial (test 98.7 % 96.0-97.0 H code = 2708-6) HCO3, Arterial (test 22 mmol/L code = 1960-4) Base Excess, Arterial -3.3 mmol/L -2.0-3.0 L (test code = 1925-7) Patient Temperature 36.9 (test code = 8310-5) FIO2 (test code = 1819) 21 Lab Interpretation Abnormal (test code = 23561-4) [facility] [id number] 03:56:18 Test Item Value Reference Range Interpretation Comments PH ARTERIAL (BEAKER) (test code = 7.35 7.35-7.45 383) PCO2 ARTERIAL (BEAKER) (test code 40 mm Hg 35-45 = 384) PO2 ARTERIAL (BEAKER) (test code 138 mm Hg 80-90 H = 385) O2 SATURATION ARTERIAL (BEAKER) 98.7 % 96.0-97.0 H (test code = 386) HCO3 ARTERIAL (BEAKER) (test code 22 mmol/L = 388) BASE EXCESS ARTERIAL (BEAKER) -3.3 mmol/L -2.0-3.0 L (test code = 387) PATIENT TEMPERATURE (BEAKER) 36.9 (test code = 1818) FIO2 (BEAKER) (test code = 1819) 21.0 [id number] 03:53:51 Test Item Value Reference Range Interpretation Comments PHOSPHORUS (BEAKER) (test code = 3.8 mg/dL 2.3-4.7 604) [employer]cery Store Courtesy Clerk ID - BSCOMPREHENSIVE METABOLIC [id number] 03:53:50 Test Item Value Reference Range Interpretation Comments TOTAL PROTEIN 5.6 gm/dL 6.0-8.3 L (BEAKER) (test code = 770) ALBUMIN (BEAKER) 4.0 g/dL 3.5-5.0 (test code = 1145) ALKALINE PHOSPHATASE 43 U/L 40-150 (BEAKER) (test code = 346) BILIRUBIN TOTAL 0.9 mg/dL 0.2-1.2 (BEAKER) (test code = 377) SODIUM (BEAKER) (test 137 meq/L 136-145 code = 381) POTASSIUM (BEAKER) 3.6 meq/L 3.5-5.1 (test code = 379) CHLORIDE (BEAKER) 108 meq/L 98-107 H (test code = 382) CO2 (BEAKER) (test 23 meq/L 22-29 code = 355) BLOOD UREA NITROGEN 15 mg/dL 7-21 (BEAKER) (test code = 354) CREATININE (BEAKER) 0.68 mg/dL 0.57-1.25 (test code = 358) GLUCOSE RANDOM 100 mg/dL 70-105 (BEAKER) (test code = 652) CALCIUM (BEAKER) 8.6 mg/dL 8.4-10.2 (test code = 697) AST (SGOT) (BEAKER) 8 U/L 5-34 (test code = 353) ALT (SGPT) (BEAKER) 9 U/L 6-55 (test code = 347) EGFR (BEAKER) (test 86 mL/min/1.73 ESTIMA SARAH GFR IS code = 1092) sq m NOT ACCURATE CREATININE CLEARANCE IN PREDICTING GLOMERULAR FILTRATION RATE . ESTIMATED GFR I S NOT APPLICABLE FOR DIALYSIS PATIEN TS. [employer]cery Store Courtesy Clerk ID - [id number] 03:53:50 Test Item Value Reference Range Interpretation Comments MAGNESIUM (BEAKER) (test code = 1.9 mg/dL 1.6-2.6 627) [employer]cery Store Courtesy Clerk ID - BSCALCIUM, [id number] 03:45:05 Test Item Value Reference Range Interpretation Comments CALCIUM IONIZED (BEAKER) (test 1.20 mmol/L 1.12-1.27 code = 698) PH, BLOOD (BEAKER) (test code = 7.35 1810) Lactic Acid, [id number] 03:36:02 Test Item Value Reference Range Interpretation Comments Lactate, Art (test code = 1.2 mmol/L 0.5-2.2 2874) MIRIAM (test code = MIRIAM) [employer]cery Store Courtesy Clerk ID - BS Lab Interpretation (test Normal code = 89516-9) [facility], [id number] 03:36:02 Test Item Value Reference Range Interpretation Comments LACTATE BLOOD ARTERIAL (2) 1.2 mmol/L 0.5-2.2 (BEAKER) (test code = 2874) [employer]cery Store Courtesy Clerk ID - BSCBC W/PLT COUNT & AUTO [id number] 03:32:23 Test Item Value Reference Range Interpretation Comments WHITE BLOOD CELL COUNT (BEAKER) 9.7 K/ L 3.5-10.5 (test code = 775) RED BLOOD CELL COUNT (BEAKER) 3.27 M/ L 3.93-5.22 L (test code = 761) HEMOGLOBIN (BEAKER) (test code = 10.2 GM/DL 11.2-15.7 L 410) HEMATOCRIT (BEAKER) (test code = 30.4 % 34.1-44.9 L 411) MEAN CORPUSCULAR VOLUME (BEAKER) 93.0 fL 79.4-94.8 (test code = 753) MEAN CORPUSCULAR HEMOGLOBIN 31.2 pg 25.6-32.2 (BEAKER) (test code = 751) MEAN CORPUSCULAR HEMOGLOBIN CONC 33.6 GM/DL 32.2-35.5 (BEAKER) (test code = 752) RED CELL DISTRIBUTION WIDTH 12.3 % 11.7-14.4 (BEAKER) (test code = 412) PLATELET COUNT (BEAKER) (test 189 K/CU MM 150-450 code = 756) MEAN PLATELET VOLUME (BEAKER) 10.4 fL 9.4-12.3 (test code = 754) NUCLEATED RED BLOOD CELLS 0 /100 WBC 0-0 (BEAKER) (test code = 413) NEUTROPHILS RELATIVE PERCENT 69 % (BEAKER) (test code = 429) LYMPHOCYTES RELATIVE PERCENT 21 % (BEAKER) (test code = 430) MONOCYTES RELATIVE PERCENT 8 % (BEAKER) (test code = 431) EOSINOPHILS RELATIVE PERCENT 2 % (BEAKER) (test code = 432) BASOPHILS RELATIVE PERCENT 0 % (BEAKER) (test code = 437) NEUTROPHILS ABSOLUTE COUNT 6.67 K/ L 1.56-6.13 H (BEAKER) (test code = 670) LYMPHOCYTES ABSOLUTE COUNT 2.03 K/ L 1.18-3.74 (BEAKER) (test code = 414) MONOCYTES ABSOLUTE COUNT (BEAKER) 0.73 K/ L 0.24-0.36 H (test code = 415) EOSINOPHILS ABSOLUTE COUNT 0.17 K/ L 0.04-0.36 (BEAKER) (test code = 416) BASOPHILS ABSOLUTE COUNT (BEAKER) 0.04 K/ L 0.01-0.08 (test code = 417) IMMATURE GRANULOCYTES-RELATIVE 0 % 0-1 PERCENT (BEAKER) (test code = 2801) COMPREHENSIVE METABOLIC [id number] 21:50:19 Test Item Value Reference Range Interpretation Comments TOTAL PROTEIN 5.8 gm/dL 6.0-8.3 L (BEAKER) (test code = 770) ALBUMIN (BEAKER) 3.9 g/dL 3.5-5.0 (test code = 1145) ALKALINE PHOSPHATASE 43 U/L 40-150 (BEAKER) (test code = 346) BILIRUBIN TOTAL 0.7 mg/dL 0.2-1.2 (BEAKER) (test code = 377) SODIUM (BEAKER) (test 143 meq/L 136-145 code = 381) POTASSIUM (BEAKER) 4.1 meq/L 3.5-5.1 (test code = 379) CHLORIDE (BEAKER) 111 meq/L 98-107 H (test code = 382) CO2 (BEAKER) (test 23 meq/L 22-29 code = 355) BLOOD UREA NITROGEN 19 mg/dL 7-21 (BEAKER) (test code = 354) CREATININE (BEAKER) 0.73 mg/dL 0.57-1.25 (test code = 358) GLUCOSE RANDOM 123 mg/dL 70-105 H (BEAKER) (test code = 652) CALCIUM (BEAKER) 9.2 mg/dL 8.4-10.2 (test code = 697) AST (SGOT) (BEAKER) 7 U/L 5-34 (test code = 353) ALT (SGPT) (BEAKER) 10 U/L 6-55 (test code = 347) EGFR (BEAKER) (test 80 mL/min/1.73 ESTIMA SARAH GFR IS code = 1092) sq m NOT ACCURATE CREATININE CLEARANCE IN PREDICTING GLOMERULAR FILTRATION RATE . ESTIMATED GFR I S NOT APPLICABLE FOR DIALYSIS PATIEN TS. [employer]cery Store Courtesy Clerk ID - [id number] 21:50:19 Test Item Value Reference Range Interpretation Comments MAGNESIUM (BEAKER) (test code = 1.9 mg/dL 1.6-2.6 627) [employer] Courtesy Clerk ID - [id number] 21:50:19 Test Item Value Reference Range Interpretation Comments PHOSPHORUS (BEAKER) (test code = 4.4 mg/dL 2.3-4.7 604) [employer]cery Store Courtesy Clerk ID - BSLACTIC ACID, [id number] 21:46:16 Test Item Value Reference Range Interpretation Comments LACTATE BLOOD ARTERIAL (2) 2.2 mmol/L 0.5-2.2 (BEAKER) (test code = 2874) [employer]cery [employer] Courtesy Clerk ID - [id number] 21:41:55 Test Item Value Reference Range Interpretation Comments FIBRINOGEN LEVEL (BEAKER) (test 215 mg/dl 225-434 L code = 658) [id number] 21:41:55 Test Item Value Reference Range Interpretation Comments PARTIAL THROMBOPLASTIN TIME 31.6 seconds 22.5-36.0 (BEAKER) (test code = 760) PROTHROMBIN [id number] 21:41:13 Test Item Value Reference Range Interpretation Comments PROTIME (BEAKER) 14.9 seconds 11.9-14.2 H (test code = 759) INR (BEAKER) (test 1.19 See_Comment [Automat ed message] code = 370) The system [employer] generated this result transmitted ref erence range: <=5.90. The reference range was not used to int erpret this result as normal/abnormal . RECOMMENDED COUMADIN/WARFARIN INR THERAPY RANGESSTANDARD DOSE: 2.0 - 3.0 Includes: PROPHYLAXIS for venous thrombosis, systemic embolization; TREATMENT for venous thrombosis and/or pulmonary embolus.HIGH RISK: Target INR is 2.5-3.5 for patients with mechanical heart valves.CBC W/PLT COUNT & AUTO [id number] 21:37:15 Test Item Value Reference Range Interpretation Comments WHITE BLOOD CELL COUNT (BEAKER) 11.8 K/ L 3.5-10.5 H (test code = 775) RED BLOOD CELL COUNT (BEAKER) 3.60 M/ L 3.93-5.22 L (test code = 761) HEMOGLOBIN (BEAKER) (test code = 11.1 GM/DL 11.2-15.7 L 410) HEMATOCRIT (BEAKER) (test code = 33.4 % 34.1-44.9 L 411) MEAN CORPUSCULAR VOLUME (BEAKER) 92.8 fL 79.4-94.8 (test code = 753) MEAN CORPUSCULAR HEMOGLOBIN 30.8 pg 25.6-32.2 (BEAKER) (test code = 751) MEAN CORPUSCULAR HEMOGLOBIN CONC 33.2 GM/DL 32.2-35.5 (BEAKER) (test code = 752) RED CELL DISTRIBUTION WIDTH 12.2 % 11.7-14.4 (BEAKER) (test code = 412) PLATELET COUNT (BEAKER) (test 211 K/CU MM 150-450 code = 756) MEAN PLATELET VOLUME (BEAKER) 10.0 fL 9.4-12.3 (test code = 754) NUCLEATED RED BLOOD CELLS 0 /100 WBC 0-0 (BEAKER) (test code = 413) NEUTROPHILS RELATIVE PERCENT 78 % (BEAKER) (test code = 429) LYMPHOCYTES RELATIVE PERCENT 13 % (BEAKER) (test code = 430) MONOCYTES RELATIVE PERCENT 7 % (BEAKER) (test code = 431) EOSINOPHILS RELATIVE PERCENT 1 % (BEAKER) (test code = 432) BASOPHILS RELATIVE PERCENT 0 % (BEAKER) (test code = 437) NEUTROPHILS ABSOLUTE COUNT 9.18 K/ L 1.56-6.13 H (BEAKER) (test code = 670) LYMPHOCYTES ABSOLUTE COUNT 1.52 K/ L 1.18-3.74 (BEAKER) (test code = 414) MONOCYTES ABSOLUTE COUNT (BEAKER) 0.87 K/ L 0.24-0.36 H (test code = 415) EOSINOPHILS ABSOLUTE COUNT 0.13 K/ L 0.04-0.36 (BEAKER) (test code = 416) BASOPHILS ABSOLUTE COUNT (BEAKER) 0.04 K/ L 0.01-0.08 (test code = 417) IMMATURE GRANULOCYTES-RELATIVE 1 % 0-1 PERCENT (BEAKER) (test code = 2801) BLOOD GAS, [id number] 21:36:01 Test Item Value Reference Range Interpretation Comments PH ARTERIAL (BEAKER) (test code = 7.35 7.35-7.45 383) PCO2 ARTERIAL (BEAKER) (test code 40 mm Hg 35-45 = 384) PO2 ARTERIAL (BEAKER) (test code 141 mm Hg 80-90 H = 385) O2 SATURATION ARTERIAL (BEAKER) 98.7 % 96.0-97.0 H (test code = 386) HCO3 ARTERIAL (BEAKER) (test code 22 mmol/L 21-29 = 388) BASE EXCESS ARTERIAL (BEAKER) -3.4 mmol/L -2.0-3.0 L (test code = 387) PATIENT TEMPERATURE (BEAKER) 37.2 (test code = 1818) FIO2 (BEAKER) (test code = 1819) 21.0 CALCIUM, [id number] 21:34:52 Test Item Value Reference Range Interpretation Comments CALCIUM IONIZED (BEAKER) (test 1.22 mmol/L 1.12-1.27 code = 698) PH, BLOOD (BEAKER) (test code = 7.36 1810) RAD, CHEST, 1 VIEW, NON [id number] 20:27:00Reason for exam:->s/p Carotid endartectomyShould this be performed at the bedside?->Yes [facility] 1955 Sex: FFINAL REPORT History: s/p Carotid endarterectomy. Comparison: None. Findings: A singleview of the chest is submitted. The cardiac silhouette is prominent in size but magnified by portable technique. There is atherosclerotic calcification of the elongated aorta. There is no focal consolidation, pneumothorax, large pleural effusion or evidence of overt pulmonary edema. There is no acute bony abnormality. Impression: No acute abnormality. Signed: Tomas Mark Verified Date/Time: 04/10/2022 20:27:30 Glucose-Stat [id number] 14:20:15 Test Item Value Reference Range Interpretation Comments Glucose (test code = 2345-7) 125 mg/dL 70-110 H Lab Interpretation (test code = Abnormal 78146-6) [facility] [id number] 14:20:15 Test Item Value Reference Range Interpretation Comments Potassium (test code = 2823-3) 3.4 meq/L 3.6-5.5 L Lab Interpretation (test code = Abnormal 26827-7) [facility] [id number] 14:20:15 Test Item Value Reference Range Interpretation Comments POTASSIUM (BEAKER) (test code = 3.4 meq/L 3.6-5.5 L 379) GLUCOSE-STAT [id number] 14:20:15 Test Item Value Reference Range Interpretation Comments GLUCOSE RANDOM (BEAKER) (test code 125 mg/dL 70-110 H = 652) HGB/HCT (H&H)-Stat [id number] 14:20:10 Test Item Value Reference Range Interpretation Comments Hemoglobin (test code = 13.0 See_Comment [Au tomated message] 786-4) The system [employer] generated this result transmitted ref erence range: 12.0 - 1 5.0 GM/DL. The refe rence range was not u sed to interpret this result as normal/abnor mal. Hematocrit (test code = 38.0 % 36.0-45.0 4544-3) Lab Interpretation (test Normal code = 84097-0) [facility] [id number] 14:20:10 Test Item Value Reference Range Interpretation Comments Sodium (test code = 2951-2) 141 meq/L 136-145 Lab Interpretation (test code = Normal 09485-6) [facility] [id number] 14:20:10 Test Item Value Reference Range Interpretation Comments SODIUM (BEAKER) (test code = 381) 141 meq/L 136-145 HGB/HCT (H&H) - STAT [id number] 14:20:10 Test Item Value Reference Range Interpretation Comments HEMOGLOBIN (BEAKER) (test code = 13.0 GM/DL 12.0-15.0 410) HEMATOCRIT (BEAKER) (test code = 38.0 % 36.0-45.0 411) CALCIUM, [id number] 14:20:04 Test Item Value Reference Range Interpretation Comments CALCIUM IONIZED (BEAKER) (test 1.12 mmol/L 1.12-1.27 code = 698) PH, BLOOD (BEAKER) (test code = 7.41 1810) POC ACTIVATED CLOTTING [id number] 13:17:05 Test Item Value Reference Range Interpretation Comments Activated Clotting Time 277 sec : 74 -137 seconds, (test code = 3184-9) Baselin e: TESTED AT [facility] [address], [address]: Grocery Store Courtesy Clerk/Techni trini ID = [id number] for Edwige Arteaga [facility] [id number] 13:17:05 Test Item Value Reference Range Interpretation Comments ACTIVATED CLOTTING TIME 277 sec : 74 -137 seconds, (BEAKER) (test code = Baseli ne: TESTED AT 441) [facility] [address] [facility], [address]: Grocery Store Courtesy Clerk/Techni trini ID = [id number] for Edwige Arteaga POCT-GLUCOSE [id number] 09:30:16 Test Item Value Reference Range Interpretation Comments POC-GLUCOSE METER 134 mg/dL 70-110 H : TESTED A T [facility] [address] (BEAKER) (test code = [facility], 1538) [address]: Grocery Store Courtesy Clerk/Techni trini ID = [id number] for GR CHAPOEMANUEL BASIC METABOLIC [id number] 13:24:48 Test Item Value Reference Range Interpretation Comments SODIUM (BEAKER) 142 meq/L 136-145 (test code = 381) POTASSIUM (BEAKER) 4.0 meq/L 3.5-5.1 (test code = 379) CHLORIDE (BEAKER) 106 meq/L 98-107 (test code = 382) CO2 (BEAKER) (test 26 meq/L 22-29 code = 355) BLOOD UREA NITROGEN 17 mg/dL 7-21 (BEAKER) (test code = 354) CREATININE (BEAKER) 0.78 mg/dL 0.57-1.25 (test code = 358) GLUCOSE RANDOM 109 mg/dL 70-105 H (BEAKER) (test code = 652) CALCIUM (BEAKER) 9.1 mg/dL 8.4-10.2 (test code = 697) EGFR (BEAKER) (test 74 mL/min/1.73 ESTIMA SARAH GFR IS code = 1092) sq m NOT ACCURATE CREATININE CLEARANCE IN PREDICTING GLOMERULAR FILTRATION RATE . ESTIMATED GFR I S NOT APPLICABLE FOR DIALYSIS PATIEN TS. Grocery Store Courtesy Clerk ID - [id number] [id number] 13:09:08 Test Item Value Reference Range Interpretation Comments PROTIME (BEAKER) 13.7 seconds 11.9-14.2 (test code = 759) INR (BEAKER) (test 1.07 See_Comment [Automat ed message] code = 370) The system [employer] generated this result transmitted ref erence range: <=5.90. The reference range was not used to int erpret this result as normal/abnormal . RECOMMENDED COUMADIN/WARFARIN INR THERAPY RANGESSTANDARD DOSE: 2.0 - 3.0 Includes: PROPHYLAXIS for venous thrombosis, systemic embolization; TREATMENT for venous thrombosis and/or pulmonary embolus.HIGH RISK: Target INR is 2.5-3.5 for patients with mechanical heart valves.CBC W/PLT COUNT & AUTO [id number] 12:58:23 Test Item Value Reference Range Interpretation Comments WHITE BLOOD CELL COUNT (BEAKER) 9.0 K/ L 3.5-10.5 (test code = 775) RED BLOOD CELL COUNT (BEAKER) 4.48 M/ L 3.93-5.22 (test code = 761) HEMOGLOBIN (BEAKER) (test code = 13.7 GM/DL 11.2-15.7 410) HEMATOCRIT (BEAKER) (test code = 41.4 % 34.1-44.9 411) MEAN CORPUSCULAR VOLUME (BEAKER) 92.4 fL 79.4-94.8 (test code = 753) MEAN CORPUSCULAR HEMOGLOBIN 30.6 pg 25.6-32.2 (BEAKER) (test code = 751) MEAN CORPUSCULAR HEMOGLOBIN CONC 33.1 GM/DL 32.2-35.5 (BEAKER) (test code = 752) RED CELL DISTRIBUTION WIDTH 12.0 % 11.7-14.4 (BEAKER) (test code = 412) PLATELET COUNT (BEAKER) (test 287 K/CU MM 150-450 code = 756) MEAN PLATELET VOLUME (BEAKER) 10.2 fL 9.4-12.3 (test code = 754) NUCLEATED RED BLOOD CELLS 0 /100 WBC 0-0 (BEAKER) (test code = 413) NEUTROPHILS RELATIVE PERCENT 65 % (BEAKER) (test code = 429) LYMPHOCYTES RELATIVE PERCENT 23 % (BEAKER) (test code = 430) MONOCYTES RELATIVE PERCENT 8 % (BEAKER) (test code = 431) EOSINOPHILS RELATIVE PERCENT 3 % (BEAKER) (test code = 432) BASOPHILS RELATIVE PERCENT 1 % (BEAKER) (test code = 437) NEUTROPHILS ABSOLUTE COUNT 5.86 K/ L 1.56-6.13 (BEAKER) (test code = 670) LYMPHOCYTES ABSOLUTE COUNT 2.01 K/ L 1.18-3.74 (BEAKER) (test code = 414) MONOCYTES ABSOLUTE COUNT (BEAKER) 0.75 K/ L 0.24-0.36 H (test code = 415) EOSINOPHILS ABSOLUTE COUNT 0.23 K/ L 0.04-0.36 (BEAKER) (test code = 416) BASOPHILS ABSOLUTE COUNT (BEAKER) 0.08 K/ L 0.01-0.08 (test code = 417) IMMATURE GRANULOCYTES-RELATIVE 0 % 0-1 PERCENT (BEAKER) (test code = 2801)
[2022-12-22] MEDS ORDERED: ONDANSETRON 4 MG/2 ML VIAL ONE (11:56)
[2022-12-22] MEDS ORDERED: Ringers Lactate 1,000 ML IV ONE (12:12)
[2022-12-22 12:16] LABS: Absolute Lymphocytes (CBC) 1.8 K/uL (0.7-4.9); Hematocrit 41.4 % (36.0-45.0); Lymphocytes % 22.6 % (15.3-44.8); MCV 87.1 fL (80-100); MPV 7.9 fL (7.6-11.3); RBC Red Blood Cell Count 4.76 M/uL (3.86-4.86)
[2022-12-22] MEDS ORDERED: ACETAMINOPHEN 325 MG TABLET ONE (12:46)
[2022-12-22] MEDS ORDERED: ONDANSETRON 4 MG (ODT) TAB ONE (12:47)
[2022-12-22 12:51] LABS: Albumin 3.4 g/dL (3.4-5.0); Bilirubin Total 0.6 mg/dL (0.2-1.0); Potassium 3.8 mmol/L (3.5-5.1); Protein, Total 6.1 g/dL (6.4-8.2)
--- NOTE | 2022-12-22 13:42 | RAD REPORT ---
EXAM DESCRIPTION: CTAbdomen Pelvis W Contrast - 12/22/2022 1:24 pm unchanged left adrenal nodules w hich are benign. CLINICAL HISTORY: left sided abdominal pain, diarrhea COMPARISON: <Comparisons> TECHNIQUE: CT of the abdomen and pelvis was performed with IV contrast. All CT scans are performed using dose optimization technique as appropriate and may include automated exposure control or mA/KV adjustment according to patient size. FINDINGS: Lower chest: Circumferential thickened distal esophagus with small hiatal hernia. Coronary artery calcifications. Liver: 12 mm low-density lesion in the right hepatic lobe is unchanged since 2020 and benign. Biliary: No biliary ductal dilatation. Gallbladder adenomyomatosis. Stomach: No significant focal abnormality. Duodenum: No significant focal abnormality. Pancreas: No significant abnormality. Spleen: No significant abnormality. Adrenal: No suspicious lesions. Kidney/ureter: No hydronephrosis. No renal calculi. Retroperitoneum: No retroperitoneal adenopathy. Vascular: No aneurysm. Atherosclerosis. Bowel: Diverticulosis is present. No evidence of acute diverticulitis. No bowel obstruction.. Presume d prior appendectomy. Decompressed ascending and proximal transverse colon. Peritoneum: No ascites or free air. Bladder: Grossly unremarkable. Reproductive: No adnexal masses. Bones: No acute fracture. Multilevel degenerative changes are present in the spine. Other: n/a IMPRESSION: No acute intra-abdominal or pelvic finding. Thickening of the gastric antrum could represent gastritis or peptic ulcer disease. Endoscopy could f urther evaluate if clinically indicated. Diverticulosis. No evidence of acute diverticulitis.
[2022-12-22 14:04] LABS: Urine Blood Negative (Negative); Urine Glucose Negative (Negative); Urine Protein Negative (Negative); Urine Specific Gravity 1.015 (1.005-1.030); Urine pH 6.5 (5.0-7.0)
[2022-12-22 15:15] VITALS: TEMP 97.6
[2022-12-22 15:16] VITALS: O2SAT 98
[2022-12-22 15:17] VITALS: BP 138/76
--- NOTE | 2023-01-04 16:02 | EDPHYS ---
Physician Documentation [facility] Name: Azul Clark Age: 67 yrs Sex: Female : 1955 Arrival Date: 12/22/2022 Time: 11:34 Bed 5 Private MD: Arnol Aragon V ED Physician Vinicio Mccrary HPI: 12/22 11:43 This 67 yrs old Female presents to ER via Ambulatory with complaints of Abdominal Pain. jmm 11:43 The patient presents with abdominal pain. Onset: The symptoms/episode began/occurred jmm gradually, 2 day(s) ago. The symptoms do not radiate. Associated signs and symptoms: Pertinent positives: diarrhea. This is a 67 year old female with a history of dm, htn, diverticulitis that presents to the ED with complaints of left sided abdominal pain beginning 2 days ago with multiple episodes of watery diarrhea. Denies recent abx use, denies recent travel. . Historical: - Allergies: 11:47 Amoxicillin; aa5 11:47 Augmentin; aa5 - PMHx: 11:47 Diabetes - NIDDM; Hypertension; Diverticulitis; aa5 - PSHx: 11:47 carotid artery sx; aa5 - Immunization history:: Adult Immunizations unknown. - Social history:: Smoking status: Patient reports the use of cigarette tobacco products, smokes one-half pack cigarettes per day. ROS: 11:43 Constitutional: Negative for fever, chills, and weight loss, Cardiovascular: Negative jmm for chest pain, palpitations, and edema, Respiratory: Negative for shortness of breath, cough, wheezing, and pleuritic chest pain. 11:43 Abdomen/GI: Positive for abdominal pain. 11:43 All other systems are negative. Exam: 11:43 Constitutional: This is a well developed, well nourished patient who is awake, alert, jmm and in no acute distress. Head/Face: atraumatic. Eyes: EOMI, no conjunctival erythema appreciated ENT: Moist Mucus Membranes Neck: Trachea midline, Supple Chest/axilla: Normal chest wall appearance and motion. Cardiovascular: Regular rate and rhythm. No edema appreciated Respiratory: Normal respirations, no respiratory distress appreciated 11:43 Back: Normal ROM Skin: General appearance color normal MS/ Extremity: Moves all extremities, no obvious deformities appreciated, no edema noted to the lower extremities Neuro: Awake and alert Psych: Behavior is normal, Mood is normal, Patient is cooperative and pleasant 11:43 Abdomen/GI: Inspection: abdomen appears normal, Bowel sounds: normal, Palpation: soft, mild abdominal tenderness, in the left lower quadrant. Vital Signs: 11:35 BP 142 / 69; Pulse 73; Resp 18 S; Temp 98.7(O); Pulse Ox 99% on R/A; Weight 79.38 kg aa5 (R); Height 5 ft. 7 in. (R); 12:03 BP 137 / 84; Pulse 86; Resp 18; Temp 97.6(O); Pulse Ox 100% on R/A; Weight 70.31 kg; aa5 Height 5 ft. 3 in. ; Pain 8/10; 12:49 BP 129 / 72; Pulse 61; Resp 18; Pulse Ox 98% on R/A; ld1 14:38 BP 138 / 76; Pulse 74; Resp 18; Pulse Ox 98% ; ko1 12:03 Body Mass Index 27.46 (70.31 kg, 160.02 cm) aa 12:03 Pain Scale: Adult aa5 MDM: 11:43 Patient medically screened. [facility] 14:31 Differential diagnosis: diverticulitis, gastritis, Mesenteric ischemia or infarction, [facility] non-specific abd pain, pancreatitis. Data reviewed: vital signs, nurses notes, lab test result(s), radiologic studies. I considered the following discharge prescriptions or medication management in the emergency department Medications were administered in the Emergency Department. See MAR. Counseling: I had a detailed discussion with the patient and/or guardian regarding: the historical points, exam findings, and any diagnostic results supporting the discharge/admit diagnosis, lab results, radiology results, the need for outpatient follow up, to return to the emergency department if symptoms worsen or persist or if there are any questions or concerns that arise at home. 12/22 12:11 Order name: Comprehensive Metabolic Panel; Complete Time: 12:52 EDMS 12/22 12:11 Order name: Lipase; Complete Time: 12:52 EDMS 12/22 12:11 Order name: CBC with Automated Diff; Complete Time: 12:22 EDMS 12/22 14:04 Order name: Urine Dipstick-Ancillary; Complete Time: 14:06 EDMS 12/22 11:44 Order name: CT Abd/Pelvis - IV Contrast Only; Complete Time: 13:45 [facility] 12/22 11:44 Order name: IV Saline Lock; Complete Time: 12:03 [facility] 12/22 11:44 Order name: Labs collected and sent; Complete Time: 12:03 [facility] 12/22 11:44 Order name: Urine Dipstick-Ancillary (obtain specimen); Complete Time: 14:02 [facility] Administered Medications: 12:02 Drug: Ondansetron IVP 4 mg Route: IVP; Site: right antecubital; aa5 12:10 Drug: Lactated Ringers Solution IV 1000 ml Route: IV; Rate: 1000 ml/hr; Site: right ko1 antecubital; Disposition: 18:32 Co-signature as Attending Physician, Vinicio Mccrary MD I reviewed the patient's care rt provided by the Advanced Practice Provider and agree with the diagnosis and treatment plan. Disposition Summary: 12/22/22 14:32 Discharge Ordered Location: Home [facility] Condition: Stable [facility] Diagnosis - Diarrhea, unspecified [facility] Followup: [facility] - With: Arnol Aragon MD - When: 2 - 3 days - Reason: Recheck today's complaints, Continuance of care, Re-evaluation by your physician Discharge Instructions: - Discharge Summary Sheet [facility] - Food Choices to Help Relieve Diarrhea, Adult [facility] Forms: - Medication Reconciliation Form [facility] - Thank You Letter [facility] - Antibiotic Education [facility] - Prescription Opioid Use [facility] Prescriptions: - ondansetron 4 mg Oral Tablet,disintegrating - take 1 tablet by ORAL route every 4-6 hours As needed as needed for nausea and m vomiting; 30 tablet; Refills: 0, Product Selection Permitted - dicyclomine 20 mg Oral Tablet - take 1 tablet by ORAL route 4 times per day As needed; 20 tablet; Refills: 0, [facility] Product Selection Permitted Signatures: Dispatcher [employer] EDMS John Leiva PA PA m Olive Valenzuela RN RN aa5 Tiana Ramirez RN RN ko1 Vinicio Mccrary MD MD rt Corrections: (The following items were deleted from the chart) 11:48 11:47 Allergies: No Known Allergies; aa5 aa5 13:11 12:59 CT-ABD ordered. EDMN EDMS
--- NOTE | 2023-01-04 16:02 | ER ---
Nurse's Notes [facility] Name: Azul Clark Age: 67 yrs Sex: Female : 1955 Arrival Date: 12/22/2022 Time: 11:34 Bed 5 Private MD: Arnol Aragon V Diagnosis: Diarrhea, unspecified Presentation: 12/22 11:35 Acuity: VICKIE 3 aa5 11:35 Onset of symptoms was December 2022. aa5 11:35 Chief complaint: Patient states: abd pain, nausea, and diarrhea x 2 days ago. Pt aa5 reports hx of diverticulitis. 11:35 Method Of Arrival: Ambulatory aa5 11:35 Coronavirus screen: nausea. Ebola Screen: Patient denies travel to an Ebola-affected [facility] area in the 21 days before illness onset. Initial Sepsis Screen: Does the patient meet any 2 criteria? No. Patient's initial sepsis screen is negative. Does the patient have a suspected source of infection? No. Patient's initial sepsis screen is negative. Risk Assessment: Do you want to hurt yourself or someone else? Patient reports no desire to harm self or others. Historical: - Allergies: 11:47 Amoxicillin; aa5 11:47 Augmentin; aa5 - PMHx: 11:47 Diabetes - NIDDM; Hypertension; Diverticulitis; aa5 - PSHx: 11:47 carotid artery sx; aa5 - Immunization history:: Adult Immunizations unknown. - Social history:: Smoking status: Patient reports the use of cigarette tobacco products, smokes one-half pack cigarettes per day. Screenin:03 [facility] ED Fall Risk Assessment (Adult) History of falling in the last 3 months, aa5 including since admission No falls in past 3 months (0 pts). Abuse screen: Denies threats or abuse. Denies injuries from another. Nutritional screening: No deficits noted. Tuberculosis screening: No symptoms or risk factors identified. Assessment: 12:03 Reassessment: See triage assessment. aa5 Vital Signs: 11:35 BP 142 / 69; Pulse 73; Resp 18 S; Temp 98.7(O); Pulse Ox 99% on R/A; Weight 79.38 kg aa5 (R); Height 5 ft. 7 in. (R); 12:03 BP 137 / 84; Pulse 86; Resp 18; Temp 97.6(O); Pulse Ox 100% on R/A; Weight 70.31 kg; aa5 Height 5 ft. 3 in. ; Pain 8/10; 12:49 BP 129 / 72; Pulse 61; Resp 18; Pulse Ox 98% on R/A; ld1 14:38 BP 138 / 76; Pulse 74; Resp 18; Pulse Ox 98% ; ko1 12:03 Body Mass Index 27.46 (70.31 kg, 160.02 cm) aa5 12:03 Pain Scale: Adult aa5 ED Course: 11:34 Patient arrived in ED. mr 11:34 Arnol Aragon MD is Private Physician. mr 11:35 [facility]. jmm 11:35 Vinicio Mccrary MD is Attending Physician. jmm 11:35 Arm band placed on Patient placed in an exam room, on a stretcher. aa5 11:37 Naomi Crowe, [place] is Primary Nurse. ld1 11:46 Triage completed. aa5 12:03 Patient has correct armband on for positive identification. Placed in gown. Bed in low aa5 position. Call light in reach. Side rails up X2. Pulse ox on. NIBP on. Notified ED physician of. Door closed. Noise minimized. 12:03 No provider procedures requiring assistance completed. Inserted saline lock: 20 gauge aa5 in right antecubital area, using aseptic technique. Blood collected. 12:31 Lipase Sent. ko1 12:31 Comprehensive Metabolic Panel Sent. ko1 13:26 CT Abd/Pelvis - IV Contrast Only In Process Unspecified. EDMS 14:32 Arnol Aragon MD is Referral Physician. jmm 14:38 IV discontinued, intact, bleeding controlled, No redness/swelling at site. Pressure ko1 dressing applied. Administered Medications: 12:02 Drug: Ondansetron IVP 4 mg Route: IVP; Site: right antecubital; aa5 12:10 Drug: Lactated Ringers Solution IV 1000 ml Route: IV; Rate: 1000 ml/hr; Site: right ko1 antecubital; Medication: 12:03 VIS not applicable for this client. aa5 Outcome: 14:32 Discharge ordered by MD. jmm 14:38 Discharged to home ambulatory, with family. ko1 14:38 Condition: improved 14:38 Discharge instructions given to patient, family, Instructed on discharge instructions, follow up and referral plans. medication usage, Demonstrated understanding of instructions, follow-up care, medications, Prescriptions given X 2. 14:39 Patient left the ED. ko1 Signatures: Dispatcher [employer] EDMS John Leiva PA PA jmm Rivera, Mary mr ValenzuelaOlive, RN RN aa5 Naomi Crowe RN RN ld1 Tiana Ramirez RN RN ko1 Corrections: (The following items were deleted from the chart) 11:48 11:47 Allergies: No Known Allergies; aa5 aa5
== END 2022-12-22 14:39 | disposition home or self-care (01) ==
LOC: ER 11:30
DX: R19.7 Diarrhea, unspecified (principal); I10 Essential (primary) hypertension; F17.210 Nicotine dependence, cigarettes, uncomplicated; Z88.1 Allergy status to other antibiotic agents
CPT/HCPCS: 85025; 36415; 81003; 83690; 80053; 74177; 96374; 99284; Q9967; Q0162; J2405; J7120